=== PATIENT | female | born 1940 | race Caucasian/White ===

== ENCOUNTER 2021-03-17 09:41 | Outpatient (CLI) | payer MEDICARE, SELFPAY ==
--- NOTE | ~2021-03-17 | MM_ITS ---
EXAMINATION: MM screening [facility] BI w maria guadalupe HISTORY: Screening mammogram TECHNIQUE: Craniocaudal and mediolateral oblique 3-D tomosynthesis images were obtained and synthetic 2-D images were generated. CAD analysis was submitted and interpreted. COMPARISON: 10/07/2019, 08/06/2018, 06/19/2017 bilateral digital screening mammogram examinations BREAST PARENCHYMAL COMPOSITION: There are scattered areas of fibroglandular density. FINDINGS: There is no evidence of suspicious mass, calcification, or architectural distortion to sugg est malignancy in either breast. There has been no suspicious interval change. IMPRESSION: 1. No mammographic evidence of malignancy. 2. Recommend routine screening mammography in one year. BI-RADS Category 1: Negative Reviewed, dictated and finalized at location A.
== END 2021-03-17 09:42 | disposition home or self-care (01) ==
LOC: ANHIMG 09:45
PROVIDERS: Family Provider Internal Medicine; PCP Internal Medicine; Visit Provider Internal Medicine
DX: Z12.31 Encounter for screening mammogram for malignant neoplasm of breast (principal)
CPT/HCPCS: 77063; 77067

== ENCOUNTER 2022-03-21 08:28 | Outpatient (CLI) | payer MEDICARE, SELFPAY ==
--- NOTE | ~2022-03-21 | DEXA_ITS ---
Bone Density Report Name: MEGAN ZALDIVAR Age: 81 Sex: Female Ethnicity: White Date of : 1940 Indication: postmenopausal; screening for osteoporosis; height loss; Referring Provider: SAYDA AGUERO Study: Bone densitometry was performed. Exam Date: March 21, 2022 Accession number: [id number] Bone Density: Region BMD T-score Z-score Classification AP Spine(L1, L2, L3) 0.801 -2.0 0.6 Osteopenia Femoral Neck (Left) 0.500 -3.1 -0.9 Osteoporosis Total Hip (Left) 0.574 -3.0 -1.0 Osteoporosis Femoral Neck (Right) 0.539 -2.8 -0.5 Osteoporosis Total Hip (Right) 0.587 -2.9 -0.9 Osteoporosis Total Hip Mean 0.581 -3.0 -1.0 Osteoporosis World Health Organization criteria for BMD impression classify patients as: Normal (T-score at or above -1.0), Osteopenia (T-score between -1.0 and -2.5), or Osteoporosis (T-score at or below -2.5). 10-year Fracture Risk: FRAX not reported because: Some T-score for Spine Total or Hip Total or Femoral Neck at or below -2.5 Treated for osteoporosis Clinical Information Provided by Patient: Is being treated for osteoporosis Has used the following medications: Fosamax (i.e. alendronate), Calcium Patient maximum height was 64 Menopause Age: 49 Drinks caffeinated beverages Onset of menses at age 15 Number of children 0 Impression: The patient has osteoporosis, based on the Left Femoral Neck T-score. Discussion: It is important to ask patients whether they are taking their medications and to encourage continued and appropriate compliance with their osteoporosis therapies to reduce fracture risk. It is also important to review their risk factors and encourage appropriate calcium and vitamin D intakes, exercise, fall prevention and other lifestyle measures. Follow-Up: Consider a repeat BMD and Vertebral Fracture Assessment (VFA) exam in 2 years or sooner if medically necessary, to reassess this patient's status. Reported by: BANDAR on 03/21/2022 8:52:00 AM. Reviewed, dictated and finalized at location A. ANIVAL
== END 2022-03-21 08:29 | disposition home or self-care (01) ==
LOC: ANHIMG 08:30
PROVIDERS: PCP Family Medicine; Visit Provider Family Medicine
DX: Z78.0 Asymptomatic menopausal state (principal); M85.88 Other specified disorders of bone density and structure, other site; M81.0 Age-related osteoporosis without current pathological fracture
CPT/HCPCS: 77080

== ENCOUNTER 2022-04-25 09:36 | Outpatient (CLI) | payer MEDICARE, SELFPAY ==
--- NOTE | ~2022-04-25 | MM_ITS ---
EXAMINATION: MM screening [facility] BI w maria guadalupe HISTORY: Screening mammogram TECHNIQUE: Craniocaudal and mediolateral oblique 3-D tomosynthesis images were obtained and synthetic 2-D images were generated. CAD analysis was submitted and interpreted. COMPARISON: 03/17/2021, 10/07/2019, 08/06/2018 BREAST PARENCHYMAL COMPOSITION: There are scattered areas of fibroglandular density. FINDINGS: There is no suspicious mass, calcification, or architectural distortion to suggest malignan cy in either breast. There has been no suspicious interval change. IMPRESSION: 1. No mammographic evidence of malignancy. 2. Recommend routine screening mammography in one year. BI-RADS Category 1: Negative Reviewed, dictated and finalized at location A.
== END 2022-04-25 09:37 | disposition home or self-care (01) ==
LOC: ANHIMG 09:37
PROVIDERS: PCP Family Medicine; Visit Provider Family Medicine
DX: Z12.31 Encounter for screening mammogram for malignant neoplasm of breast (principal)
CPT/HCPCS: 77063; 77067

== ENCOUNTER 2022-07-25 12:06 | Outpatient (CLI) | payer MEDICARE, SELFPAY ==
[2022-07-25 13:28] LABS: Anion Gap 11 mmol/L (8-16); Blood Urea Nitrogen 26 mg/dL (7-17); Calcium 9.1 mg/dL (8.4-10.2); Carbon Dioxide 25 mmol/L (22-30); Chloride 103 mmol/L (98-107); Estimated Glomerular Filt Rate > 60; Glucose 129 mg/dL (65-110); Potassium 3.9 mmol/L (3.4-5.0); Sodium 139 mmol/L (137-145)
[2022-07-25 13:40] LABS: Parathyroid Intact 74.9 pg/mL (7.5-53.5)
[2022-07-25 13:58] LABS: Vitamin D 25 Hydroxy 40.5 ng/mL
== END 2022-07-25 12:07 | disposition home or self-care (01) ==
PROVIDERS: PCP Family Medicine; Visit Provider Internal Medicine Endocrinology, Diabetes & Metabolism
DX: M81.0 Age-related osteoporosis without current pathological fracture (principal); R79.89 Other specified abnormal findings of blood chemistry
CPT/HCPCS: 36415; 80048; 82306; 83970

== ENCOUNTER 2022-09-19 11:59 | Outpatient (CLI) | payer MEDICARE, SELFPAY ==
[2022-09-19 12:16] LABS: Total Volume 24 Hour Urine 900 ml
[2022-09-19 12:23] LABS: Creatinine 24 Hour Urine 0.7 gm/24 (0.8-1.8); Creatinine Urine 78.6 mg/dL
[2022-09-23 02:47] LABS: Total Volume 900 mL; Urine Calcium 10.7 mg/dL
== END 2022-09-19 12:00 | disposition home or self-care (01) ==
PROVIDERS: PCP Family Medicine; Visit Provider Internal Medicine Endocrinology, Diabetes & Metabolism
DX: M81.0 Age-related osteoporosis without current pathological fracture (principal); R79.89 Other specified abnormal findings of blood chemistry
CPT/HCPCS: 81050; 82340; 82570

== ENCOUNTER 2022-11-26 08:08 | Outpatient (CLI) | payer MEDICARE, SELFPAY ==
[2022-11-26 19:06] LABS: Alanine Aminotransferase 14 U/L (6-35); Albumin Level 3.9 g/dL (3.5-5.1); Alkaline Phosphatase 60 U/L (38-126); Anion Gap 5 mmol/L (8-16); Aspartate Amino Transferase 34 U/L (14-36); Bilirubin,Total 0.9 mg/dL (0.2-1.3); Blood Urea Nitrogen 15 mg/dL (7-17); Calcium 8.7 mg/dL (8.4-10.2); Carbon Dioxide 29 mmol/L (22-30); Chloride 105 mmol/L (98-107); Cholesterol 222 mg/dL (0-200); Estimated Glomerular Filt Rate > 60; Glucose 74 mg/dL (65-110); HDL Direct 60 mg/dL; Sodium 139 mmol/L (137-145); Triglycerides 92 mg/dL (<150)
[2022-11-26 19:19] LABS: LDL Cholesterol Direct 100 mg/dL
[2022-11-26 21:21] LABS: Hemoglobin A1C 5.5 % (<5.7)
== END 2022-11-26 08:09 | disposition home or self-care (01) ==
LOC: ANHGOSHLAB 08:11
PROVIDERS: PCP Family Medicine; Visit Provider Internal Medicine Endocrinology, Diabetes & Metabolism
DX: E78.2 Mixed hyperlipidemia (principal); I10 Essential (primary) hypertension; R73.09 Other abnormal glucose
CPT/HCPCS: 36415; 80053; 80061; 83036

== ENCOUNTER 2022-12-25 09:15 | Outpatient (NON) | payer MEDICARE, SELFPAY ==
[2022-12-25 20:12] LABS: Creatinine Urine 59.9 mg/dL
[2022-12-25 20:31] LABS: Creatinine 24 Hour Urine 0.9 gm/24 (0.8-1.8); Total Volume 24 Hour Urine 1590 ml
[2022-12-30 12:08] LABS: Total Volume 1590 mL; Urine Calcium 18.3 mg/dL
== END 2022-12-25 09:16 | disposition home or self-care (01) ==
LOC: ANHGOSHLAB 09:20
PROVIDERS: PCP Family Medicine; Visit Provider Internal Medicine Endocrinology, Diabetes & Metabolism
DX: M81.0 Age-related osteoporosis without current pathological fracture (principal); R79.89 Other specified abnormal findings of blood chemistry
CPT/HCPCS: 81050; 82340; 82570

== ENCOUNTER 2023-04-28 08:15 | Emergency (ER) | payer MEDICARE, SELFPAY ==
--- NOTE | ~2023-04-28 | XR_ITS ---
XR ankle RT min 3V 04/28/2023 09:12 INDICATION: Right ankle pain PROCEDURE: 4 views right ankle COMPARISON: No prior studies for comparison. FINDINGS: Fracture, dislocation or subluxation is not identified. The soft tissues appear within norm al limits. No foreign bodies are identified. IMPRESSION: 1: NO ACUTE BONE OR JOINT ABNORMALITY IDENTIFIED. Reviewed, dictated and finalized at location A.
--- NOTE | 2023-04-28 08:27 | ED.EXTPRO ---
HPI - Extremity Problem General Chief complaint: Extremity Injury, Upper Stated complaint: rt ankle/wrist injury Time Seen by Provider: 04/28/23 08:30 Source: patient and RN notes reviewed Mode of arrival: ambulatory Limitations: no limitations History of Present Illness HPI Narrative: 82-year-old female presents with concern for right ankle pain and swelling. Reports 2 week history of ankle pain and swelling without known injury. She reports it hurts worse when weight-bearing. She reports she sometimes elevated and uses ice. She reports on she was going for a walk and she was favoring that ankle which caused her to stumble and fall, so she then has a an abrasion on the palmar aspect of her right hand. Reports she has been using hydrogen peroxide and a Band-Aid. She denies wrist pain, swelling, redness, warmth. She denies drainage from the wound. She reports the was a flap and the flap was replaced a loss immediately after the injury MD Complaint: extremity pain Related Data Home Medications Medication Instructions Recorded Confirmed antiarthritic combination no.2 900 900 mg PO DAILY 08/17/20 04/28/23 mg tablet (glucosamine-chondroitin) mecobalamin (vitamin B12) 1,000 1,000 mcg PO DAILY 04/27/22 04/28/23 mcg chewable tablet calcium 600 Vitamin D3 125 mg 07/16/22 10/27/22 lutein 20 mg capsule 20 mg PO DAILY 08/20/22 04/28/23 Allergies Allergy/AdvReac Type Severity Reaction Status Date / Time No Known Allergies Allergy Verified 04/28/23 08:40 Review of Systems Review of Systems: CONSTITUTIONAL: Denies malaise, chills, sweats, or fever. CARDIOVASCULAR: Denies chest pain, palpitations, or edema. RESPIRATORY: Denies cough or dyspnea. SKIN: Denies rash or itching, bruising, warmth, redness. She reports wounds to the palmar aspect of right hand MUSCULOSKELETAL: Reports right ankle pain and swelling NEUROLOGIC: Denies numbness, weakness All systems reviewed & are unremarkable except as noted in HPI and below PMFSH Past Medical History Medical History Broken wrist Osteoporosis Family History Family History Mother Patient's mother is Social History Social History (Updated 10/26/22 @ 09:16 by Helena Power [facility]) Smoking packs per day: 0.5 Smoking cigarettes per day: 10.0 Years smoked: 5 Smoking pack-years: 2.50 Smoking status: Former smoker Second hand tobacco smoke exposure: No Smoking end date: 11/18/76 Alcohol intake: current Substance use: never Substance use type: does not use Lack of Transportation: No Lack of Food: Never True Current Housing: I Have Housing Concerned About Future Housing: No Difficulty Paying Gas/Electric Bills: No Difficulty Paying for Meds: No Currently Unemployed: No Education: Master's Degree or Higher Difficulty w/ Childcare or Family Care: No Living arrangements: alone Occupation/Education: retired Gender identity (if verbalized by the patient): Female Sexual Orientation (if Verbalized by the Patient): Straight or Heterosexual Spiritual care concerns: No Agree to blood products: Yes Comments At time of signature, agree with nursing past medical, surgical, social and family history. There is no relevant family history pertinent to the presenting complaint Exam Narrative: GENERAL: Well-appearing, well-nourished, and in no acute distress. HEAD: Normocephalic, atraumatic. EYES: PERRLA, conjunctivae clear NECK: Supple. CHEST: Speaks in full sentences. No respiratory distress. HEART: Regular rate and rhythm. Normal and equal peripheral pulses. EXTREMITIES: Right ankle, foot, digits have normal strength and sensation, muscle normal range of motion. Mild medial ankle edema without erythema, warmth, ecchymosis. 5/5 strength with ankle in digit flexion and extension. Normal sensatio
[2023-04-28 08:29] VITALS: BP 145/83; PULSE 70; RESP 16; TEMP 36.6; O2SAT 100
== END 2023-04-28 09:32 | disposition home or self-care (01) ==
PROVIDERS: Emergency Provider Nurse Practitioner; PCP Family Medicine
DX: S60.511A Abrasion of right hand, initial encounter (principal); W01.0XXA Fall on same level from slipping, tripping and stumbling without subsequent striking against object, initial encounter; Z87.891 Personal history of nicotine dependence; M81.0 Age-related osteoporosis without current pathological fracture; M25.571 Pain in right ankle and joints of right foot
CPT/HCPCS: 73610; 99213; G0463

== ENCOUNTER 2023-06-12 12:11 | Outpatient (CLI) | payer MEDICARE, SELFPAY ==
--- NOTE | 2023-06-12 12:29 | ECHO_ITS ---
Patient Info Name: Kelly Leal Age: 82 years : 1940 Gender: Female Ht: 64 in Wt: 120 lbs BSA: 1.57 m2 HR: 78 bpm BP: 135 / 81 mmHg Technical Quality: Fair Exam Date: 06/12/2023 12:43 PM Exam Location: [facility] Patient Status: Outpatient Admit Date: 06/12/2023 Staff Ordering Physician: Lakshmi Oliveira MD Wood Gang Sawyer: Dee Brown RDCS Attending Provider: Lakshmi Oliveira MD Referring Physician: Tee MONTENEGRO; Exam Type: CA echo doppler color flow Study Info Indications R01.1 - Cardiac murmur, unspecified Complete two-dimensional, color flow and Doppler transthoracic echocardiogram is performed. Summary 1. Complete two-dimensional, color flow and Doppler transthoracic echocardiogram is performed. 2. Left ventricular chamber dimension is normal. 3. Left ventricular systolic function is normal, estimated at 60-65%. 4. The left ventricular diastolic function is grade I diastolic dysfunction. 5. E/e' 9 is minimally elevated. 6. There is moderate aortic valve sclerosis. 7. The mitral valve has mildly calcified annulus. 8. There is trace mitral valve regurgitation. 9. There is trace tricuspid valve regurgitation. 10. No pulmonary hypertension, estimated pulmonary arterial systolic pressure is 31 mmHg. Left Ventricle E/e' 9 is minimally elevated. Left ventricular chamber dimension is normal. Left ventricular systolic function is normal, estimated at 60-65%. The left ventricular diastolic function is grade I diastolic dysfunction. Right Ventricle Right ventricular chamber dimension is normal. Right ventricular systolic function is normal. Left Atria Left atrial chamber dimension is normal. Right Atria Right atrial chamber dimension is normal. Aortic Valve The aortic valve is trileaflet. There is moderate aortic valve sclerosis. There is no aortic valve stenosis. There is no aortic valve regurgitation. Pulmonic Valve There is no pulmonic regurgitation. Mitral Valve The mitral valve has mildly calcified annulus. There is no mitral valve stenosis. There is trace mitral valve regurgitation. Tricuspid Valve There is trace tricuspid valve regurgitation. No pulmonary hypertension, estimated pulmonary arterial systolic pressure is 31 mmHg. Pericardium/Pleural There is no pericardial effusion. Inferior Vena Cava Normal inferior vena cava with >50% collapse upon inspiration consistent with normal right atrial pressure, 5 mmHg. Aorta The aortic root size at the sinus of Valsalva is normal. Left Ventricular Outflow Tract Name Value Normal LVOT 2D LVOT Diameter 2.0 cm LVOT Doppler LVOT Peak Gradient 5 mmHg LVOT Mean Gradient 3 mmHg LVOT VTI 22 cm LVOT VTI/AV VTI Ratio 0.6 LVOT Stroke Volume 70 ml LVOT CO 13.8 l/min LVOT CI 8.8 l/min/m2 Pulmonic Valve Name Value Normal RVOT
== END 2023-06-12 12:12 | disposition home or self-care (01) ==
PROVIDERS: PCP Family Medicine; Visit Provider Family Medicine
DX: R01.1 Cardiac murmur, unspecified (principal)
CPT/HCPCS: 93306

== ENCOUNTER 2024-11-12 09:00 | Outpatient (CLI) | payer MEDICARE, SELFPAY ==
[2024-11-12 19:22] LABS: Alanine Aminotransferase 14 U/L (6-35); Albumin Level 3.9 g/dL (3.5-5.1); Alkaline Phosphatase 74 U/L (38-126); Anion Gap 4 mmol/L (4-12); Aspartate Amino Transferase 32 U/L (14-36); Bilirubin,Total 0.9 mg/dL (0.2-1.3); Blood Urea Nitrogen 17 mg/dL (7-17); Calcium 8.7 mg/dL (8.4-10.2); Carbon Dioxide 28 mmol/L (22-30); Chloride 107 mmol/L (98-107); Cholesterol 212 mg/dL (0-200); Estimated Glomerular Filt Rate > 60; Glucose 101 mg/dL (65-110); HDL Direct 60 mg/dL; Potassium 3.5 mmol/L (3.4-5.0); Sodium 139 mmol/L (137-145); Triglycerides 95 mg/dL (<150)
[2024-11-12 19:33] LABS: LDL Cholesterol Direct 106 mg/dL
[2024-11-12 19:43] LABS: Vitamin D 25 Hydroxy 65.2 ng/mL
== END 2024-11-12 09:01 | disposition home or self-care (01) ==
LOC: ANHGOSHLAB 09:01
PROVIDERS: PCP Family Medicine; Visit Provider Family Medicine
DX: E78.2 Mixed hyperlipidemia (principal); E11.9 Type 2 diabetes mellitus without complications; E55.9 Vitamin D deficiency, unspecified
CPT/HCPCS: 36415; 80053; 80061; 82306

== ENCOUNTER 2025-04-22 09:20 | Outpatient (CLI) | payer MEDICARE, SELFPAY ==
--- OUTSIDE RECORDS SUMMARY | 2025-04-22 09:59 | XMS_ITS | Continuity of Care Document ---
Author Organization [facility] Address [address] [place] [address] [place] [address] Phone Care Team Providers Care Deputy Administrator Name Role Phone Tremayne Paredes Unavailable Unavailable Procedures Procedure Date Eye Exam Established Pt Post-op Follow-up Visit Post-op Follow-up Visit Post-op Follow-up Visit Remove Cataract, Insert Lens PreOp Assessment Performed Presbyopia Correcting IOL IOLMaster Eye Exam, New Patient Advance Directives Directive Yes / No Effective Date File Name No Information Encounters Encounter Description Practice Location Reason(s) For Visit Diagnoses Date Provider Providers Copied on Encounter [facility], [address] [place] [address] [address], [place], [place], [id number], tel:[phone] SEC [facility] No Information 0 Reggie Casper. [address] [place], [place], [facility], [place]. tel:[phone] Referring Provider: Myla Saucedo, [address], [place], [place], [facility]. tel:[phone] [facility], [address] [place] [address] [address], [place], [place], [id number], tel:[phone] SEC [facility] No Information 6-201 0 Alfreda Lanza. [address], [place], [address], [place]. tel:[phone] [facility], [address], [place], [place], [id number], [place] tel:[phone] [facility] No Information Oct-2 2-201 0 Gant Myla. [address], [place], [place], [facility], [place]. tel:[phone] Referring Provider: Samia Jenkins OD, [address] [place], [address]. tel:[phone] [facility], [address], [place], [place], [id number], [place] tel:[phone] [facility] No Information Oct-1 4-201 0 Orozco OD Zhao. [address], [place], [place], [facility], . tel:[phone] [facility], [address], [place], [place], [id number], [place] tel:[phone] [facility] No Information Oct-1 3-201 0 Alfreda Aguilarn. [address], [place], [facility], [place]. tel:[phone] Referring Provider: Samia Jenkins OD, [address] [place] [address], [address]. tel:[phone] [facility], [address], [place], [place], [id number], [place] tel:[phone] [facility] No Information Oct-0 8-201 0 Alfreda Aguilarn. [address], [place], [facility], [place]. tel:[phone] Referring Provider: Myla Saucedo, [address], [place], [address]. tel:[phone] [facility], [address], [place], [place], [id number], [place] tel:[phone] [facility] No Information 1-201 0 Alfreda Lanza. [address], [place], [address], [place]. tel:[phone] Referring Provider: Samia Jenkins OD, [address] [facility], [place], [address]. tel:[phone] Family History Family Member Type Diagnosis Age At Onset No Information Payers Payer name Insurance type Covered democrat ID Authoriza tion(s) [place] [id number] Social History Type Description Quantity Date Captured Comments Sex Female Smoking Status No Information Chief Complaint And Reason For Visit No Information Reason For Referral Reason For Referral No Information History Of Present Illness Encounter Date Complaint History Of Prese nt Illness No Information Functional Status Date Functional Assessmen t No Information Instructions Date Instruction Additional Infor mation No Information Assessments Type Assessment Date No Information Patient Care Teams Name Effective Dates (start - stop) Status Members No Information
[2025-04-22 13:37] LABS: Alanine Aminotransferase 14 U/L (6-35); Albumin Level 4.2 g/dL (3.5-5.1); Alkaline Phosphatase 69 U/L (38-126); Anion Gap 5 mmol/L (4-12); Aspartate Amino Transferase 51 U/L (14-36); Bilirubin,Total 0.8 mg/dL (0.2-1.3); Blood Urea Nitrogen 15 mg/dL (7-17); Calcium 9.7 mg/dL (8.4-10.2); Carbon Dioxide 30 mmol/L (22-30); Chloride 105 mmol/L (98-107); Cholesterol 250 mg/dL (0-200); Estimated Glomerular Filt Rate > 60; Glucose 95 mg/dL (65-110); HDL Direct 70 mg/dL; LDL Cholesterol Direct 112 mg/dL; Potassium 4.4 mmol/L (3.4-5.0); Sodium 140 mmol/L (137-145); Total Protein 7.9 g/dL (6.3-8.2); Triglycerides 112 mg/dL (<150)
[2025-04-22 13:52] LABS: Free T4 Free Thyroxine 1.19 ng/dL (0.78-2.19)
[2025-04-22 13:56] LABS: Basophils Absolute Auto 0.1 K/mm3 (0.0-0.1); Basophils Percent Auto 1.4 % (0.2-1.2); Eosinophils Absolute Auto 0.1 K/mm3 (0-0.3); Eosinophils Percent Auto 2.4 % (0-4.4); Hematocrit 40.7 % (37.0-47.0); Hemoglobin 12.8 g/dL (12.0-15.0); Immature Granulocyte Absolute 0.01 K/mm3 (0.00-0.031); Immature Granulocyte Percent A 0.2 % (0-0.5); Lymphocytes Absolute Auto 1.69 K/mm3 (0.9-3.2); Lymphocytes Percent Auto 33.9 % (18.3-44.2); Mean Corpuscular HGB Conc 31.4 g/dl (32-36); Mean Corpuscular Hemoglobin 31.4 pg (26-34); Mean Corpuscular Volume 99.8 fl (80-100); Mean Platelet Volume 11.6 fl (7.4-10.4); Monocytes Absolute Auto 0.5 K/mm3 (0.1-0.6); Monocytes Percent Auto 9.6 % (2.6-8.5); Neutrophils Absolute Auto 2.6 K/mm3 (1.3-6.7); Neutrophils Percent Auto 52.5 % (45.5-73.1); Platelet Count Result 222 k/mm3 (150-375); Red Blood Count 4.08 M/mm3 (4.2-5.4); Red Cell Distribution Width 11.9 % (11.5-14.5)
== END 2025-04-22 09:21 | disposition home or self-care (01) ==
LOC: ANHGOSHLAB 09:21
PROVIDERS: PCP Family Medicine; Visit Provider Student in an Organized Health Care Education/Training Program
DX: R79.89 Other specified abnormal findings of blood chemistry (principal); I10 Essential (primary) hypertension; E78.5 Hyperlipidemia, unspecified; R53.83 Other fatigue; Z00.00 Encounter for general adult medical examination without abnormal findings
CPT/HCPCS: 36415; 80053; 80061; 84439; 84443; 85025

== ENCOUNTER 2025-06-07 10:50 | Outpatient (CLI) | payer MEDICARE, SELFPAY ==
--- NOTE | ~2025-06-07 | DEXA_ITS ---
Bone Density Report Name: MEGAN ZALDIVAR Age: 84 Sex: Female Ethnicity: White Date of : 1940 Indication: postmenopausal osteoporosis; monitoring treatment; height loss; Referring Provider: TIERA CALLES Study: Bone densitometry was performed. Exam Date: June 07, 2025 Accession number: [id number] Bone Density: Region BMD T-score Z-score Classification AP Spine(L1, L2, L3) 0.789 -2.1 0.6 Osteopenia Femoral Neck (Left) 0.530 -2.9 -0.5 Osteoporosis Total Hip (Left) 0.600 -2.8 -0.6 Osteoporosis Femoral Neck (Right) 0.511 -3.0 -0.6 Osteoporosis Total Hip (Right) 0.571 -3.0 -0.8 Osteoporosis Total Hip Mean 0.585 -2.9 -0.7 Osteoporosis World Health Organization criteria for BMD impression classify patients as: Normal (T-score at or above -1.0), Osteopenia (T-score between -1.0 and -2.5), or Osteoporosis (T-score at or below -2.5). 10-year Fracture Risk: FRAX not reported because: Some T-score for Spine Total or Hip Total or Femoral Neck at or below -2.5 Treated for osteoporosis Previous Exams: Region Exam Age BMD T-score BMD Change BMD Change Date g/cm2 vs Baseline vs Previous AP Spine (L1-L3) 06/07/2025 84 0.789 -2.1 -0.012 (-1.5%) -0.012 (-1.5%) 03/21/2022 81 0.801 -2.0 Total Hip(Left) 06/07/2025 84 0.600 -2.8 0.025 (4.4%) 0.025 (4.4%) 03/21/2022 81 0.574 -3.0 Total Hip(Right) 06/07/2025 84 0.571 -3.0 -0.016 (-2.8%) -0.016 (-2.8%) 03/21/2022 81 0.587 -2.9 *Denotes significance at 95% confidence level, LSC for AP Spine = 0.022 g/cm2, LSC for Total Hip = 0.027 g/cm2 Clinical Information Provided by Patient: Is being treated for osteoporosis Has used the following medications: Fosamax (i.e. alendronate), Calcium Patient maximum height was 64.0 Menopause Age: 49 Drinks caffeinated beverages Onset of menses at age 15 Number of children 0 Impression: The patient has osteoporosis, based on the Right Total Hip T-score. No significant bone loss was observed. Discussion: PATIENT UNDER TREATMENT WITH NO SIGNIFICANT BMD LOSS SINCE LAST EXAM. In an untreated patient, BMD typically declines with age. A lack of decline or gain is usually a sign that treatment is efficacious and fracture risk is reduced. It is important to ask patients whether they are taking their medications and to encourage continued and appropriate compliance with their osteoporosis therapies to reduce fracture risk. It is also important to review their risk factors and encourage appropriate calcium and vitamin D intakes, exercise, fall prevention and other lifestyle measures. Follow-Up: Consider a repeat BMD and Vertebral Fracture Assessment (VFA) exam in 2 years or sooner if medically necessary, to reassess this patient's status. Reported by: MAU on 06/07/2025 11:31:00 AM. Reviewed, dictated and finalized at location A.
--- OUTSIDE RECORDS SUMMARY | 2025-06-07 10:55 | XMS_ITS | Continuity of Care Document ---
Author Organization [facility] Address [address] [place] [address] [place] [address] Phone Care Team Providers Care Brake Press Operator Name Role Phone Tremayne Paredes Unavailable Unavailable [...] Diagnoses Date Provider Providers Copied on Encounter [facility], [address] [place] [address] [address], [place], [place], [id number], tel:[phone] SEC [facility] No Information 0 Reggie Casper. [address] [place], [place], [facility], [place]. tel:[phone] Referring Provider: Myla Saucedo, [address], [place], [place], [facility]. tel:[phone] [facility], [address] [place] [address] [address], [place], [place], [id number], tel:[phone] SEC [facility] No Information 6-201 0 Alfreda Lanza. [address], [place], [address], [place]. tel:[phone] [facility], [address], [place], [place], [id number], [place] tel:[phone] [facility] No Information Oct-2 2-201 0 Gant Myla. [address], [place], [facility], [place]. tel:[phone] Referring Provider: Samia Jenkins OD, [address] [place], [address]. tel:[phone] [facility], [address], [place], [place], [id number], [place] tel:[phone] [facility] No Information Oct-1 4-201 0 Orozco OD Zhao. [address], [place], [facility], . tel:[phone] [facility], [address], [place], [place], [id number], [place] tel:[phone] [facility] No Information Oct-1 3-201 0 Alfreda Aguilarn. [address], [place], [facility], [place]. tel:[phone] Referring Provider: Samia Jenkins OD, [address] [place] [address], [address]. tel:[phone] [facility], [address], [place], [place], [id number], [place] tel:[phone] [facility] No Information Oct-0 8-201 0 Alfreda Aguilarn. [address], [place], [facility], [place]. tel:[phone] Referring Provider: Myla Saucedo, [address], [place], [address]. tel:[phone] [facility], [address], [place], [place], [id number], [place] tel:[phone] [facility] No Information 1-201 0 Alfreda Lanza. [address], [place], [address], [place]. tel:[phone] Referring Provider: Samia Jenkins OD, [address] [facility], [place], [address]. tel:[phone] Family History Family Member Type Diagnosis Age At Onset No Information Payers Payer name Insurance type Covered libertarian ID Authoriza tion(s) [place] [id number] Social History Type Description Quantity Date Captured [...]
== END 2025-06-07 10:51 | disposition home or self-care (01) ==
LOC: ANHIMG 10:51
PROVIDERS: PCP Family Medicine; Visit Provider Student in an Organized Health Care Education/Training Program
DX: M81.0 Age-related osteoporosis without current pathological fracture (principal); Z78.0 Asymptomatic menopausal state; M85.88 Other specified disorders of bone density and structure, other site
CPT/HCPCS: 77080

== ENCOUNTER 2025-11-03 12:52 | Emergency (ER) | payer MEDICARE, SELFPAY ==
[2025-11-03] VITALS (9 sets, daily range): BP systolic 133–164; BP diastolic 63–78; PULSE 55–70; RESP 11–21; TEMP 36.3; O2SAT 92–100
--- NOTE | ~2025-11-03 | CT_ITS ---
EXAM/PROCEDURE: CT facial & cervical spine wo HISTORY: facial pain s/p fall, concern for cervical injury COMPARISON: None available. TECHNIQUE: Facial & cervical spine CT performed FINDINGS: FACIAL BONE CT: No facial bone fracture lucency. CERVICAL SPINE CT: No fracture lucency or traumatic malalignment C1-C7. Advanced multilevel degenerative changes throughout the mid and lower cervical spine including mild degenerative appearing anterolisthesis C4 on C5, C5 on C6 and C6-C7. No large disc herniations or severe spinal canal stenosis. Carotid artery calcifications present. No gross prevertebral or paraspinal soft tissue swelling or hematoma seen. IMPRESSION: 1. No facial bone fracture. 2. No fracture lucency C1-C7. 3. Advanced degenerative changes throughout the cervical spine including multilevel spondylolisthesis. Reviewed, dictated and finalized at location A. [facility] CLINICIAN IMPRESSION: 1. No facial bone fracture. 2. No fracture lucency C1-C7. 3. Advanced degenerative changes throughout the cervical spine including multil evel spondylolisthesis.
--- NOTE | ~2025-11-03 | CT_ITS ---
EXAMINATION: CT brain wo con DATE: 11/03/2025 16:10 INDICATION: Head injury TECHNIQUE: Computed tomography (CT) of the head was performed without intravenous contrast. The dose-length product was 529.67 mGy-cm. COMPARISON: None FINDINGS: No gross intracranial mass effect or hemorrhage. No large acute ischemic event. Moderately advanced chronic microvascular ischemic appearing white matter changes. No depressed skull fracture. IMPRESSION: 1. No gross acute intracranial process. Reviewed, dictated and finalized at location A. [employer] WORKER
--- NOTE | ~2025-11-03 | XR_ITS ---
EXAMINATION: XR shoulder LT min 2V, 11/03/2025 16:04 [employer] SERVICES LEAD HISTORY: L shoulder pain s/p fall COMPARISON: No comparisons available. Findings: There is an impacted comminuted fracture of the humeral neck extending into the humeral head with intra-articular extension. Large effusion. Soft tissue swelling. Impression: Fractures detailed above Reviewed, dictated and finalized at location P. T SERVICES LEAD Impression: Fractures detailed above
--- NOTE | 2025-11-03 15:47 | WC.ED.TRAUMA ---
HPI - Trauma General Chief Complaint: Extremity Injury, Upper <Julianna Wilson APRN - Last Filed: 11/03/25 15:49> Stated Complaint: GLF WHILE WALKING DOG <Julianna Wilson APRN - Last Filed: 11/03/25 15:49> Time Seen by Provider: 11/03/25 15:47 <Julianna Wilson APRN - Last Filed: 11/03/25 15:49> Focused HPI: Patient is an 85-year-old female who presents to the ER after sustaining a fall. She reports she was walking her dog she tripped over the leash and landed on the ground. Patient is unsure whether not she hit her head. At time of examination patient endorses left shoulder pain, left tooth pain, wooziness, and slight nausea. She reports she is not on blood thinners. Patient endorses a history of high blood pressure and high cholesterol. She denies any loss of consciousness, saddle anesthesia, numbness and tingling in her extremities. GENERAL: Well-appearing, well-nourished, and in no acute distress. HEAD: Normocephalic, atraumatic. CHEST: Clear to auscultation. ?No respiratory distress. HEART: Regular rate and rhythm.? NEURO: ?Alert and oriented x3. Unable to lift L shoulder d/t pain Patient screened in triage and initial orders placed.? ?Additional care and disposition to be based upon?diagnostic testing and treatment. <Julianna Wilson APRN - Last Filed: 11/03/25 15:49> History of Present Illness HPI narrative: Agree with HPI <Marc Andrews DO - Last Filed: 11/03/25 22:25> Related Data Home Medications: Home Medications ?Medication ?Instructions ?Recorded ?Confirmed ?Last Taken ?Type mecobalamin (vitamin B12) 1,000 1,000 mcg PO DAILY 04/27/22 10/21/25 Unknown History mcg chewable tablet calcium 600 Vitamin D3 125 mg 07/16/22 10/21/25 Unknown History lutein 20 mg capsule 20 mg PO DAILY 08/20/22 10/21/25 Unknown History calcium 250 mg tablet PO DAILY 05/08/23 10/21/25 Unknown History (citrate)-ergocalciferol (D2) 2.5 mcg (100 unit) tablet (Keegan-Citrate) <Julianna Wilson APRN - Last Filed: 11/03/25 15:49> Allergies/Adverse Reactions: Allergies Allergy/AdvReac Type Severity Reaction Status Date / Time No Known Allergies Allergy Verified 11/03/25 12:53 <Julianna Wilson APRN - Last Filed: 11/03/25 15:49> Review of Systems Review of Systems: All systems reviewed & are unremarkable except as noted in HPI and below <Marc Andrews DO - Last Filed: 11/03/25 22:25> PMFSH Past Medical History Medical History: Medical History Tongue mass Pure hypercholesterolemia, unspecified Pure hypercholesterolemia Other fatigue Examination of ears and hearing Encounter for screening colonoscopy Osteoporosis Broken wrist <Julianna Wilson APRN - Last Filed: 11/03/25 15:49> Family History Family History: Family History Mother Patient's mother is <Julianna Wilson APRN - Last Filed: 11/03/25 15:49> Social History Social History: Social History Smoking packs per day: 0.5 Smoking cigarettes per day: 10.0 Years smoked: 5 Smoking pack-years: 2.50 Smoking status: Former smoker Second hand tobacco smoke exposure: No Smoking end date: 11/18/76 Alcohol intake: current Substance use: never Substance use type: does not use Lack of Transportation: No Lack of Food: Never True Current Housing: I Have Housing Concerned About Future Housing: No Difficulty Paying Gas/Electric Bills: No Difficulty Paying for Meds: No Currently Unemployed: No Education: Master's Degree or Higher Difficulty w/ Childcare or Family Care: No Living arrangements: alone Occupation/Education: retired Gender identity (if verbalized by the patient): Female Sexual Orientation (if Verbalized by the Patient): Straight or Heterosexual Spiritual care concerns: No Agree to blood products: Yes <CARISSA Garcia Last Filed: 11/03/25 15:49> Exam Narrative: APPEARANCE: No acute distress, nontoxic, resting in bed EYES: EOMI HEENT: Normocephalic, atraumatic, OMM RESPIRATORY: No respiratory distress Clear to auscultation bilaterally with no rhonchi wheezing or rales. CARDIOVASCULAR: Regular rate and rhythm without murmurs rubs or gallops. ABDOMINAL: Soft, nontender, nondistended, no rebound or guarding MUSCULOSKELETAl: Left upper extremity LD inside, swelling in tenderness over the proximal left humerus, neurovascularly intact distally. No tenderness over the left clavicle or scapula NEURO: Awake and alert. Following commands, speech normal, no focal deficits SKIN:: Warm, dry. No rashes lesions or abrasions PSYCHIATRIC: Normal affect/mood, <Marc Andrews DO - Last Filed: 11/03/25 22:25> Course Vital Signs Vital signs: Vital Signs Temperature 97.4 F L 11/03/25 13:02 Pulse Rate 55 L 11/03/25 13:02 Respiratory Rate 18 11/03/25 13:02 Blood Pressure 146/63 H 11/03/25 13:02 Pulse Oximetry 100 11/03/25 13:02 Oxygen Delivery Room Air 11/03/25 13:02 Temperature 97.4 F L 11/03/25 13:02 Pulse Rate 61 11/03/25 19:20 Respiratory Rate 14 11/03/25 19:20 Blood Pressure 139/76 11/03/25 19:20 Pulse Oximetry 99 11/03/25 19:20 Oxygen Delivery Room Air 11/03/25 18:11 <Julianna Wilson, WASH BOX OPERATOR - Last Filed: 11/03/25 15:49> Vital Signs Temperature 97.4 F L 11/03/25 13:02 Pulse Rate 55 L 11/03/25 13:02 Respiratory Rate 18 11/03/25 13:02 Blood Pressure 146/63 H 11/03/25 13:02 Pulse Oximetry 100 11/03/25 13:02 Oxygen Delivery Room Air 11/03/25 13:02 Temperature 97.4 F L 11/03/25 13:02 Pulse Rate 61 11/03/25 19:20 Respiratory Rate 14 11/03/25 19:20 Blood Pressure 139/76 11/03/25 19:20 Pulse Oximetry 99 11/03/25 19:20 Oxygen Delivery Room Air 11/03/25 18:11 <Marc Andrews DO - Last Filed: 11/03/25 22:25> [facility] MDM Narrative Medical decision making narrative: 85-year-old female Presenting for a fall with left shoulder injury. On initial evaluation patient was in no acute distress afebrile, hemodynamic stable. Differentials include but are not limited to: Fracture, sprain, strain, contusion Notable exam findings: Dried blood around the mouth, swelling and tenderness over the left proximal humerus I personally reviewed the patient's lab result. Notable lab findings: CBC and CMP without significant abnormalities. UA clear. I personally reviewed the patient's images and interpret as follows: Left shoulder x-ray revealed a impacted comminuted left proximal humerus fracture with minimal displacement. CT head/C-spine/facial bones showed no acute process. Patient neurovascularly intact distally to the injury. Patient was placed in a sling. She was given a referral to Dr. Larios, orthopedic surgery, for further evaluation. Patient was agreeable to this plan. Given strict return precautions. <Marc Andrews DO - Last Filed: 11/03/25 22:25> Differential Diagnosis Differential Diagnosis: Fracture, sprain, strain, contusion <Marc Andrews DO - Last Filed: 11/03/25 22:25> Lab Data Result diagrams: 11/03/25 18:14 11/03/25 18:14 <Julianna Wilson WASH BOX OPERATOR - Last Filed: 11/03/25 15:49> Labs: Lab Results 11/03/25 11/03/25 Range/Units 18:14 18:49 WBC 9.3 (4.5-10.0) K/mm3 RBC 4.01 L (4.2-5.4) M/mm3 Hgb 12.7 (12.0-15.0) g/dL Hct 38.5 (37.0-47.0) % MCV 96.0 (80-100) fl MCH 31.7 (26-34) pg MCHC 33.0 (32-36) g/dl RDW 11.7 (11.5-14.5) % Plt Count 191 (150-375) k/mm3 MPV 11.0 H (7.4-10.4) fl Immature Gran % (Auto) 0.3 (0-0.5) % Neut % (Auto) 89.0 H (45.5-73.1) % Lymph % (Auto) 7.9 L (18.3-44.2) % [place] % (Auto) 2.6 (2.6-8.5) % Eos % (Auto) 0.0 (0-4.4) % Baso % (Auto) 0.2 (0.2-1.2) % Lymph # (Auto) 0.73 L (0.9-3.2) K/mm3 [place] # (Auto) 0.2 (0.1-0.6) K/mm3 Eos # (Auto) 0.0 (0-0.3) K/mm3 Baso # (Auto) 0.0 (0.0-0.1) K/mm3 Abs Immat Gran (auto) 0.03 (0.00-0.031) K/mm3 Absolute Neuts (auto) 8.2 H (1.3-6.7) K/mm3 Absolute Nucleated RBC 0.000 (0.0-0.012) K/mm3 Nucleated RBC % 0.0 (0.0-0.2) % PT 13.0 (11.1-14.7) Seconds INR 1.0 APTT 28.6 (22.3-36.8) Seconds Sodium 138 (137-145) mmol/L Potassium 4.1 (3.4-5.0) mmol/L Chloride 107 (98-107) mmol/L Carbon Dioxide 25 (22-30) mmol/L Anion Gap 6 (4-12) mmol/L BUN 17 (7-17) mg/dL Creatinine 0.61 L (0.7-1.0) mg/dL Estim Creat Clear Calc 50 ml/min Estimated GFR > 60 (59 - ) Glucose 152 H (65-110) mg/dL Calcium 9.3 (8.4-10.2) mg/dL Total Bilirubin 0.8 (0.2-1.3) mg/dL AST 29 (14-36) U/L ALT 15 (6-35) U/L Alkaline Phosphatase 73 (38-126) U/L Total Protein 8.0 (6.3-8.2) g/dL Albumin 4.3 (3.5-5.1) g/dL Urine Color Yellow (Yellow) Urine Appearance Clear (Clear) Urine pH 5.0 (5.0-9.0) Ur Specific [place] 1.023 (1.001-1.035) Urine Protein Negative (Negative) mg/dL Urine Glucose (UA) Negative (Negative) mg/dL Urine Ketones 1+ H (Negative) mg/dL Ur Blood (Man) Trace (Negative) Urine Nitrate Negative (Negative) Urine Bilirubin Negative (Negative) Urine Urobilinogen 0.2 (<2.0) mg/dL Leukocyte Esterase Rfl Negative (Negative) LILA/UL Urine RBC 6-10 H (0-2) /hpf Urine WBC 0-5 (0-3) /hpf Ur Squamous Epith Cells Occasional (Few) /hpf Urine Bacteria None seen /hpf Urine Casts 0-2 <Julianna Wilson, WASH BOX OPERATOR - Last Filed: 11/03/25 15:49> Lab Results 11/03/25 11/03/25 Range/Units 18:14 18:49 WBC 9.3 (4.5-10.0) K/mm3 RBC 4.01 L (4.2-5.4) M/mm3 Hgb 12.7 (12.0-15.0) g/dL Hct 38.5 (37.0-47.0) % MCV 96.0 (80-100) fl MCH 31.7 (26-34) pg MCHC 33.0 (32-36) g/dl RDW 11.7 (11.5-14.5) % Plt Count 191 (150-375) k/mm3 MPV 11.0 H (7.4-10.4) fl Immature Gran % (Auto) 0.3 (0-0.5) % Neut % (Auto) 89.0 H (45.5-73.1) % Lymph % (Auto) 7.9 L (18.3-44.2) % [place] % (Auto) 2.6 (2.6-8.5) % Eos % (Auto) 0.0 (0-4.4) % Baso % (Auto) 0.2 (0.2-1.2) % Lymph # (Auto) 0.73 L (0.9-3.2) K/mm3 [place] # (Auto) 0.2 (0.1-0.6) K/mm3 Eos # (Auto) 0.0 (0-0.3) K/mm3 Baso # (Auto) 0.0 (0.0-0.1) K/mm3 Abs Immat Gran (auto) 0.03 (0.00-0.031) K/mm3 Absolute Neuts (auto) 8.2 H (1.3-6.7) K/mm3 Absolute Nucleated RBC 0.000 (0.0-0.012) K/mm3 Nucleated RBC % 0.0 (0.0-0.2) % PT 13.0 (11.1-14.7) Seconds INR 1.0 APTT 28.6 (22.3-36.8) Seconds Sodium 138 (137-145) mmol/L Potassium 4.1 (3.4-5.0) mmol/L Chloride 107 (98-107) mmol/L Carbon Dioxide 25 (22-30) mmol/L Anion Gap 6 (4-12) mmol/L BUN 17 (7-17) mg/dL Creatinine 0.61 L (0.7-1.0) mg/dL Estim Creat Clear Calc 50 ml/min Estimated GFR > 60 (59 - ) Glucose 152 H (65-110) mg/dL Calcium 9.3 (8.4-10.2) mg/dL Total Bilirubin 0.8 (0.2-1.3) mg/dL AST 29 (14-36) U/L ALT 15 (6-35) U/L Alkaline Phosphatase 73 (38-126) U/L Total Protein 8.0 (6.3-8.2) g/dL Albumin 4.3 (3.5-5.1) g/dL Urine Color Yellow (Yellow) Urine Appearance Clear (Clear) Urine pH 5.0 (5.0-9.0) Ur Specific [place] 1.023 (1.001-1.035) Urine Protein Negative (Negative) mg/dL Urine Glucose (UA) Negative (Negative) mg/dL Urine Ketones 1+ H (Negative) mg/dL Ur Blood (Man) Trace (Negative) Urine Nitrate Negative (Negative) Urine Bilirubin Negative (Negative) Urine Urobilinogen 0.2 (<2.0) mg/dL Leukocyte Esterase Rfl Negative (Negative) LILA/UL Urine RBC 6-10 H (0-2) /hpf Urine WBC 0-5 (0-3) /hpf Ur Squamous Epith Cells Occasional (Few) /hpf Urine Bacteria None seen /hpf Urine Casts 0-2 <Marc Andrews DO - Last Filed: 11/03/25 22:25> Imaging Data Radiologist's impression: ITS Impressions Head CT 11/03/25 16:10 IMPRESSION: 1. No gross acute intracranial process. Head/Cervical Spine/Facial Bones CT 11/03/25 16:12 IMPRESSION: 1. No facial bone fracture. 2. No fracture lucency C1-C7. 3. Advanced degenerative changes throughout the cervical spine including multilevel spondylolisthesis. Shoulder X-Ray 11/03/25 16:15 Impression: Fractures detailed above <Julianna Wilson APRN - Last Filed: 11/03/25 15:49> ITS Impressions Head CT 11/03/25 16:10 IMPRESSION: 1. No gross acute intracranial process. Head/Cervical Spine/Facial Bones CT 11/03/25 16:12 IMPRESSION: 1. No facial bone fracture. 2. No fracture lucency C1-C7. 3. Advanced degenerative changes throughout the cervical spine including multilevel spondylolisthesis. Shoulder X-Ray 11/03/25 16:15 Impression: Fractures detailed above <Marc Andrews DO - Last Filed: 11/03/25 22:25> Discharge Plan Discharge Clinical Impression: Fall Qualifiers: Encounter type: initial encounter Qualified Code(s): W19.XXXA - Unspecified fall, initial encounter Fracture of proximal end of left humerus Qualifiers: Encounter type: initial encounter Fracture type: closed Fracture morphology: unspecified fracture morphology Qualified Code(s): S42.202A - Unspecified fracture of upper end of left humerus, initial encounter for closed fracture CHI (closed head injury) Qualifiers: Encounter type: initial encounter Qualified Code(s): S09.90XA - Unspecified injury of head, initial encounter <Julianna Wilson APRN - Last Filed: 11/03/25 15:49> Patient Disposition: Home <Julianna Wilson APRN - Last Filed: 11/03/25 15:49> Condition: Stable <Julianna Wilson APRN - Last Filed: 11/03/25 15:49> Instructions: Antibiotic Form, Arm Fracture in Adults (ED), How to Use a Sling (ED) <Julianna Wilson APRN - Last Filed: 11/03/25 15:49> Additional Instructions: You were found to have a humerus fracture. This is usually managed non operatively. Your given a referral to Dr. Cazares, orthopedic surgery, call his office tomorrow to schedule a follow-up appointment. Your arm in a sling. Take Bruni and zofran as prescribed. He may also take Tylenol ibuprofen. Return to the ED any new or worsening symptoms. For pain, discomfort or temperature greater than or equal to 100.8 ?F please alternate the following 2 medications as needed. First medication- acetaminophen/Tylenol- 650mg every 6-8 hours as needed for above indications. Second medication- ibuprofen/Motrin-400mg every 6-8 hours as needed for above indication. <Julianna Wilson APRN - Last Filed: 11/03/25 15:49> Patient Language: Maltese <Julianna Wilson APRN - Last Filed: 11/03/25 15:49> Prescriptions: New hydrocodone-acetaminophen 5-325 mg tablet 1 tablet PO Q8H PRN (Reason: pain) Qty: 12 0RF ondansetron 4 mg tablet,disintegrating 4 mg PO Q8H PRN (Reason: nausea and vomiting) Qty: 12 0RF No Action lutein 20 mg capsule 20 mg PO DAILY Rx Instructions: give with meal/snack Keegan-Citrate 250 mg-2.5 mcg (100 unit) tablet PO DAILY ipratropium bromide 21 mcg (0.03 %) spray,non-aerosol 2 spray intranasal .qd-tid Qty: 30 1RF Rx Instructions: administer into each nostril. Aim back/up/out mecobalamin (vitamin B12) 1,000 mcg tablet,chewable 1,000 mcg PO DAILY (DME) calcium 600 Vitamin D3 125 mg See Rx Instructions .Route .MEDSUPPLY Rx Instructions: Patient takes twice daily rosuvastatin 5 mg tablet 5 mg PO DAILY Qty: 30 6RF losartan 25 mg tablet 25 mg PO DAILY Qty: 90 1RF <Julianna Wilson APRN - Last Filed: 11/03/25 15:49> Follow-up/Referrals: Ria Person PA-C [Primary Care Provider, Family Practice] Néstor Larios MD [Physician, Orthopedics] <Julianna Wilson, WASH BOX OPERATOR - Last Filed: 11/03/25 15:49>
[2025-11-03 18:25] LABS: Hematocrit 38.5 % (37.0-47.0); Hemoglobin 12.7 g/dL (12.0-15.0); Immature Granulocyte Percent A 0.3 % (0-0.5); Lymphocytes Absolute Auto 0.73 K/mm3 (0.9-3.2); Mean Corpuscular HGB Conc 33.0 g/dl (32-36); Mean Corpuscular Hemoglobin 31.7 pg (26-34); Mean Corpuscular Volume 96.0 fl (80-100); Nucleated Red Blood Cells Absolute Auto 0.000 K/mm3 (0.0-0.012); Nucleated Red Blood Cells Perc 0.0 % (0.0-0.2); Platelet Count Result 191 k/mm3 (150-375); Red Blood Count 4.01 M/mm3 (4.2-5.4); White Blood Count 9.3 K/mm3 (4.5-10.0)
[2025-11-03 18:31] LABS: Alanine Aminotransferase 15 U/L (6-35); Albumin Level 4.3 g/dL (3.5-5.1); Alkaline Phosphatase 73 U/L (38-126); Anion Gap 6 mmol/L (4-12); Aspartate Amino Transferase 29 U/L (14-36); Bilirubin,Total 0.8 mg/dL (0.2-1.3); Blood Urea Nitrogen 17 mg/dL (7-17); Calcium 9.3 mg/dL (8.4-10.2); Carbon Dioxide 25 mmol/L (22-30); Chloride 107 mmol/L (98-107); Estimated CRCL calculation 50 ml/min; Estimated Glomerular Filt Rate > 60; Glucose 152 mg/dL (65-110); Potassium 4.1 mmol/L (3.4-5.0); Sodium 138 mmol/L (137-145); Total Protein 8.0 g/dL (6.3-8.2)
[2025-11-03 18:36] LABS: INR 1.0; Prothrombin Time 13.0 Seconds (11.1-14.7)
[2025-11-03 18:37] LABS: Partial Thromboplastin Time 28.6 Seconds (22.3-36.8)
[2025-11-03 19:00] LABS: Add Urine Microscopic? YES; Appearance Urine Clear (Clear); Glucose Urine UA Negative (Negative); Leukocyte Esterase Ur Negative LEU/UL (Negative); Nitrate Urine Negative (Negative); Non Pathogenic Casts 0-2; Specific Grav Ur 1.023 (1.001-1.035)
[2025-11-03] MEDS: fentaNYL CITRATE INJ (*CRX) 100 MCG/2 ML VIAL 50 MCG IV PUSH (19:13)
[2025-11-03] MEDS: ONDANSETRON INJ 4 MG/2 ML VIAL IV PUSH (19:13)
[2025-11-03] MEDS: oxyCODONE HCL (*CRX) 5 MG TAB IR PO (20:08)
== END 2025-11-03 20:30 | disposition home or self-care (01) ==
PROVIDERS: Registered Nurse; Emergency Provider Student in an Organized Health Care Education/Training Program; PCP Student in an Organized Health Care Education/Training Program
DX: S42.202A Unspecified fracture of upper end of left humerus, initial encounter for closed fracture (principal); S09.90XA Unspecified injury of head, initial encounter; Z87.891 Personal history of nicotine dependence; W01.0XXA Fall on same level from slipping, tripping and stumbling without subsequent striking against object, initial encounter; Y93.K1 Activity, walking an animal; R11.0 Nausea; R42 Dizziness and giddiness; K08.89 Other specified disorders of teeth and supporting structures
CPT/HCPCS: 36415; 70450; 70486; 72125; 73030; 80053; 81001; 85025; 85610; 85730; 96374; 96375; 99284; A4565; A9270; J2405; J3010